=== PATIENT | female | born 1985 | race Caucasian/White ===

== ENCOUNTER → 2023-07-11 17:23 | Outpatient (REF) | payer OTHER, SELFPAY | LOC: RAD 17:23 | PROVIDERS: ATTENDING PHYSICIAN Nurse Practitioner Family; FAMILY PHYSICIAN Family Medicine | DX: O26.859 Spotting complicating pregnancy, unspecified trimester (principal) | CPT/HCPCS: 76801 ==

== ENCOUNTER → 2023-07-26 13:49 | Outpatient (REF) | payer OTHER, SELFPAY | LOC: RAD 13:49 | PROVIDERS: ATTENDING PHYSICIAN Obstetrics & Gynecology; FAMILY PHYSICIAN Family Medicine | DX: O26.859 Spotting complicating pregnancy, unspecified trimester (principal) | CPT/HCPCS: 76801; 76817 ==

== ENCOUNTER → 2023-08-17 16:21 | Outpatient (REF) | payer OTHER, SELFPAY | LOC: PNTC 16:21 | PROVIDERS: ATTENDING PHYSICIAN Obstetrics & Gynecology | DX: Z36.0 Encounter for antenatal screening for chromosomal anomalies (principal) | CPT/HCPCS: 76801; 76813 ==

== ENCOUNTER → 2023-08-22 18:30 | Outpatient (REF) | payer OTHER, SELFPAY | LOC: RAD 18:30 | PROVIDERS: ATTENDING PHYSICIAN Obstetrics & Gynecology; FAMILY PHYSICIAN Family Medicine | DX: O36.8399 Maternal care for abnormalities of the fetal heart rate or rhythm, unspecified trimester, other fetus (principal) | CPT/HCPCS: 76815 ==

== ENCOUNTER → 2023-09-12 16:56 | Outpatient (REF) | payer OTHER, SELFPAY | LOC: PNTC 16:56 | PROVIDERS: ATTENDING PHYSICIAN Obstetrics & Gynecology | DX: O09.529 Supervision of elderly multigravida, unspecified trimester (principal); O99.210 Obesity complicating pregnancy, unspecified trimester | CPT/HCPCS: 76805 ==

== ENCOUNTER → 2023-10-10 15:01 | Outpatient (REF) | payer OTHER, SELFPAY | LOC: PNTC 15:01 | PROVIDERS: ATTENDING PHYSICIAN Obstetrics & Gynecology | DX: O99.210 Obesity complicating pregnancy, unspecified trimester (principal); O09.529 Supervision of elderly multigravida, unspecified trimester | CPT/HCPCS: 76811 ==

== ENCOUNTER → 2023-11-15 16:05 | Outpatient (REF) | payer OTHER, SELFPAY | LOC: PNTC 16:05 | PROVIDERS: ATTENDING PHYSICIAN Obstetrics & Gynecology | DX: O09.529 Supervision of elderly multigravida, unspecified trimester (principal); O99.210 Obesity complicating pregnancy, unspecified trimester | CPT/HCPCS: 76816 ==

== ENCOUNTER 2023-12-09 15:29 | Observation (INO) | payer OTHER, SELFPAY ==
[2023-12-09 15:41] VITALS: BP 150/77; BMI 61.4
[2023-12-09 17:19] LABS: Urine Albumin Negative (Neg - Trace); Urine Bilirubin Negative (Negative); Urine Character Clear (Clear); Urine Color Yellow; Urine Glucose Negative (Negative); Urine Ketone Negative (Negative); Urine Leukocyte 2+ (Negative); Urine Nitrite Negative (Negative); Urine Occult Blood Negative (Negative); Urine Urobilinogen Negative (Neg - 1+)
[2023-12-09 17:21] LABS: Hematocrit 30.3 % (37.0-47.0); Hemoglobin 10.5 g/dL (12.0-16.0); Mean Corp Hgb Conc. 34.7 g/dL (33.0-37.0); Mean Corpuscular Hgb 28.5 pg (27.0-31.0); Mean Corpuscular Volume 82.3 fL (81.0-99.0); Mean Platelet Volume 11.1 fL (7.4-10.4); Platelet Count 195 10^3/uL (130-400); Red Blood Cell Count 3.68 10^6/uL (4.20-5.40); Red Cell Dist. Width 13.4 % (11.5-14.5); White Blood Cell Count 10.6 10^3/uL (4.8-10.8)
[2023-12-09 17:32] LABS: ALT (SGPT) 13 U/L (0-35); AST (SGOT) 20 U/L (14-36); Albumin 3.5 g/dl (3.5-5.0); Alkaline Phosphatase 68 U/L (38-126); Blood Urea Nitrogen 12 mg/dl (7-17); Calcium 9.5 mg/dl (8.4-10.2); Carbon Dioxide 23 mmol/L (22-30); Chloride 106 mmol/L (98-107); Estimated Creatinine Clearance > 125 ml/min; Glucose 96 mg/dl (70-99); Potassium 4.1 mmol/L (3.5-5.1); Sodium 136 mmol/L (135-145); Total Bilirubin 0.4 mg/dl (0.2-1.3); Total Protein 6.2 g/dl (6.3-8.2); eGFR > 60.00
[2023-12-09 17:38] LABS: Urine Bacteria Moderate (Negative); Urine Red Blood Cell 0-2 /HPF (0-2); Urine Squamous Cell >30 /LPF (Few); Urine White Cell 16-20 /HPF (0-5)
== END 2023-12-09 18:04 | disposition home or self-care (01) ==
LOC: LDRP 15:29
PROVIDERS: ADMITTING PHYSICIAN Obstetrics & Gynecology
DX: O47.03 False labor before 37 completed weeks of gestation, third trimester (principal); Z3A.29 29 weeks gestation of pregnancy; O99.213 Obesity complicating pregnancy, third trimester; E66.01 Morbid (severe) obesity due to excess calories; Z98.84 Bariatric surgery status
CPT/HCPCS: 80053; 81003; 81015; 85027; 87086; G0378

== ENCOUNTER → 2023-12-26 07:00 | Outpatient (REF) | payer OTHER, SELFPAY | LOC: PNTC 07:00 | PROVIDERS: ATTENDING PHYSICIAN Obstetrics & Gynecology | DX: O99.210 Obesity complicating pregnancy, unspecified trimester (principal) | CPT/HCPCS: 76816 ==

== ENCOUNTER 2024-01-09 08:10 | Observation (INO) | payer OTHER, SELFPAY ==
[2024-01-09 08:14] VITALS: BP 149/81; BMI 63.0
[2024-01-09 09:23] LABS: Hematocrit 28.6 % (37.0-47.0); Hemoglobin 9.8 g/dL (12.0-16.0); Mean Corp Hgb Conc. 34.3 g/dL (33.0-37.0); Mean Corpuscular Volume 81.7 fL (81.0-99.0); Mean Platelet Volume 11.2 fL (7.4-10.4); Platelet Count 145 10^3/uL (130-400); White Blood Cell Count 9.3 10^3/uL (4.8-10.8)
[2024-01-09 09:29] LABS: ALT (SGPT) 12 U/L (0-35); AST (SGOT) 19 U/L (14-36); Albumin 3.2 g/dl (3.5-5.0); Alkaline Phosphatase 80 U/L (38-126); Blood Urea Nitrogen 8 mg/dl (7-17); Carbon Dioxide 26 mmol/L (22-30); Chloride 105 mmol/L (98-107); Estimated Creatinine Clearance > 125 ml/min; Glucose 96 mg/dl (70-99); Potassium 3.7 mmol/L (3.5-5.1); Sodium 134 mmol/L (135-145); Total Bilirubin 0.3 mg/dl (0.2-1.3); Total Protein 5.7 g/dl (6.3-8.2); eGFR > 60.00
[2024-01-09 09:59] LABS: Urine Albumin Negative (Neg - Trace); Urine Bilirubin Negative (Negative); Urine Character Clear (Clear); Urine Color Yellow; Urine Glucose Negative (Negative); Urine Ketone Negative (Negative); Urine Leukocyte 2+ (Negative); Urine Nitrite Negative (Negative); Urine Occult Blood Negative (Negative); Urine Specific Gravity 1.005 (<1.030); Urine Urobilinogen Negative (Neg - 1+)
[2024-01-09 10:19] LABS: Protein/creatinine Ratio 0.4; Urine Protein 15 mg/dl
[2024-01-09 11:14] LABS: Urine Squamous Cell >30 /LPF (Few)
[2024-01-09 11:16] LABS: Urine Bacteria Few (Negative); Urine Red Blood Cell 0-2 /HPF (0-2); Urine White Cell 60-70 /HPF (0-5)
== END 2024-01-09 11:00 | disposition home or self-care (01) ==
LOC: PNTC-IN 08:10
PROVIDERS: ADMITTING PHYSICIAN Obstetrics & Gynecology
DX: O13.3 Gestational [pregnancy-induced] hypertension without significant proteinuria, third trimester (principal); O09.523 Supervision of elderly multigravida, third trimester; Z3A.34 34 weeks gestation of pregnancy; O99.213 Obesity complicating pregnancy, third trimester; O99.843 Bariatric surgery status complicating pregnancy, third trimester; E66.01 Morbid (severe) obesity due to excess calories
CPT/HCPCS: 59025; 76815; 80053; 81003; 81015; 82570; 84156; 85027; G0378

== ENCOUNTER 2024-01-14 06:57 | Observation (INO) | payer OTHER, SELFPAY ==
[2024-01-14 00:32] LABS: % Basophils 0.3 % (0-2); % Eosinophils 0.8 % (0-6); % Immature Granulocytes 2.6 % (0-0.5); % Lymphocytes 20.9 % (20.5-51.1); % Monocytes 7.5 % (1.7-9.3); % Neutrophils 67.9 % (42.2-75.2); Absolute Eosinophils 0.1 10^3/uL (0-0.7); Absolute Immature Granulocytes 0.3 10^3/uL (0-0.05); Absolute Lymphocytes 2.5 10^3/uL (1.2-3.4); Absolute Monocytes 0.9 10^3/uL (0.1-0.6); Absolute Neutrophils 8.2 10^3/uL (1.4-6.5); Hematocrit 29.1 % (37.0-47.0); Mean Corp Hgb Conc. 34.4 g/dL (33.0-37.0); Mean Corpuscular Hgb 27.6 pg (27.0-31.0); Mean Corpuscular Volume 80.4 fL (81.0-99.0); Mean Platelet Volume 11.5 fL (7.4-10.4); Nucleated Red Blood Cells % 0 %; Platelet Count 176 10^3/uL (130-400); Red Blood Cell Count 3.62 10^6/uL (4.20-5.40); White Blood Cell Count 12.1 10^3/uL (4.8-10.8)
[2024-01-14 00:40] VITALS: BP 161/86; BMI 63.9
[2024-01-14 00:43] LABS: ALT (SGPT) 13 U/L (0-35); AST (SGOT) 20 U/L (14-36); Albumin 3.5 g/dl (3.5-5.0); Alkaline Phosphatase 91 U/L (38-126); Blood Urea Nitrogen 13 mg/dl (7-17); Calcium 9.5 mg/dl (8.4-10.2); Carbon Dioxide 21 mmol/L (22-30); Chloride 105 mmol/L (98-107); Glucose 140 mg/dl (70-99); Potassium 3.4 mmol/L (3.5-5.1); Sodium 135 mmol/L (135-145); Total Bilirubin 0.3 mg/dl (0.2-1.3); eGFR > 60.00
[2024-01-14] MEDS: CELESTONE SOLUSPAN 2 MG IM (00:45)
[2024-01-14] MEDS: FEOSOL 325 MG PO (08:00)
[2024-01-14] MEDS: LOW STRENGTH ASPIRIN 81 MG PO (08:00)
[2024-01-14] MEDS: PRENATAL PLUS 1 TABLET PO (08:00)
[2024-01-15] MEDS: CELESTONE SOLUSPAN 2 MG IM (00:49)
== END 2024-01-15 02:12 | disposition home or self-care (01) ==
LOC: LDRP 06:57
PROVIDERS: ADMITTING PHYSICIAN Obstetrics & Gynecology
DX: O36.8130 Decreased fetal movements, third trimester, not applicable or unspecified (principal); Z3A.34 34 weeks gestation of pregnancy; O99.213 Obesity complicating pregnancy, third trimester; E66.01 Morbid (severe) obesity due to excess calories; O14.13 Severe pre-eclampsia, third trimester; O99.843 Bariatric surgery status complicating pregnancy, third trimester
CPT/HCPCS: 59025; 80053; 85025; 86850; 86900; 86901; 87070; G0378

== ENCOUNTER → 2024-01-17 07:33 | Outpatient (REF) | payer OTHER, SELFPAY | LOC: PNTC 07:33 | PROVIDERS: ATTENDING PHYSICIAN Obstetrics & Gynecology | DX: O99.210 Obesity complicating pregnancy, unspecified trimester (principal) | CPT/HCPCS: 59025; 76815 ==

== ENCOUNTER → 2024-01-23 08:59 | Outpatient (REF) | payer OTHER, SELFPAY | LOC: PNTC 08:59 | PROVIDERS: ATTENDING PHYSICIAN Obstetrics & Gynecology | DX: O99.210 Obesity complicating pregnancy, unspecified trimester (principal) | CPT/HCPCS: 59025; 76816 ==

== ENCOUNTER 2024-02-01 05:28 | Inpatient (IN) | payer OTHER, SELFPAY ==
[2024-02-01 05:37] VITALS: BP 146/88; BMI 64.6
[2024-02-01 06:13] LABS: Hematocrit 31.9 % (37.0-47.0); Hemoglobin 11.1 g/dL (12.0-16.0); Mean Corp Hgb Conc. 34.8 g/dL (33.0-37.0); Mean Corpuscular Hgb 28.4 pg (27.0-31.0); Mean Corpuscular Volume 81.6 fL (81.0-99.0); Mean Platelet Volume 11.3 fL (7.4-10.4); Platelet Count 148 10^3/uL (130-400); Red Blood Cell Count 3.91 10^6/uL (4.20-5.40); Red Cell Dist. Width 15.6 % (11.5-14.5); White Blood Cell Count 10.2 10^3/uL (4.8-10.8)
[2024-02-01] MEDS: BICITRA 30 ML PO (07:05)
[2024-02-01] MEDS: TYLENOL 1000 MG PO (07:05)
[2024-02-01] MEDS: ANCEF 15 MG IV (08:25)
[2024-02-01 08:37] LABS: ALT (SGPT) 15 U/L (0-35); AST (SGOT) 24 U/L (14-36); Albumin 3.5 g/dl (3.5-5.0); Alkaline Phosphatase 104 U/L (38-126); Blood Urea Nitrogen 8 mg/dl (7-17); Calcium 9.1 mg/dl (8.4-10.2); Chloride 104 mmol/L (98-107); Estimated Creatinine Clearance > 125 ml/min; Glucose 104 mg/dl (70-99); Potassium 3.8 mmol/L (3.5-5.1); Sodium 139 mmol/L (135-145); Total Bilirubin 0.6 mg/dl (0.2-1.3); Total Protein 6.1 g/dl (6.3-8.2); eGFR > 60.00
[2024-02-01 08:49] LABS: Carbon Dioxide 22 mmol/L (22-30)
[2024-02-01] MEDS: PITOCIN 30 UNITS/NSS 500 ML IV (09:45)
[2024-02-01] MEDS: BENADRYL 25 MG IV (10:25)
[2024-02-01] MEDS: TORADOL 15 MG IV ×2 (16:17→22:02)
[2024-02-02] MEDS: TORADOL 15 MG IV ×2 (03:54→10:10)
[2024-02-02 04:27] LABS: Hematocrit 26.4 % (37.0-47.0); Hemoglobin 9.3 g/dL (12.0-16.0); Mean Corp Hgb Conc. 35.2 g/dL (33.0-37.0); Mean Corpuscular Hgb 28.9 pg (27.0-31.0); Mean Platelet Volume 11.2 fL (7.4-10.4); Platelet Count 130 10^3/uL (130-400); Red Blood Cell Count 3.22 10^6/uL (4.20-5.40); Red Cell Dist. Width 15.3 % (11.5-14.5); White Blood Cell Count 10.3 10^3/uL (4.8-10.8)
[2024-02-02] MEDS: PRENATAL PLUS 1 TABLET PO (07:50)
[2024-02-02] MEDS: MOTRIN 600 MG PO ×2 (15:57→22:10)
[2024-02-02] MEDS: SENOKOT-S 1 TABLET PO (22:10)
[2024-02-02] MEDS: TRANDATE 200 MG PO (22:10)
[2024-02-02] MEDS: TYLENOL 650 MG PO (22:10)
[2024-02-03] MEDS: FEOSOL 325 MG PO (07:59)
[2024-02-03] MEDS: TRANDATE 200 MG PO (07:59)
[2024-02-03] MEDS: PRENATAL PLUS 1 TABLET PO (08:00)
[2024-02-03] MEDS: TYLENOL 650 MG PO ×2 (08:02→19:50)
[2024-02-03] MEDS: MOTRIN 600 MG PO (08:02)
[2024-02-03 12:42] LABS: Syphilis/T. pallidum Ab Reflex Negative (Negative)
[2024-02-03] MEDS: TRANDATE 300 MG PO (19:50)
[2024-02-04] MEDS: PRENATAL PLUS 1 TABLET PO (07:50)
[2024-02-04] MEDS: FEOSOL 325 MG PO (07:50)
[2024-02-04] MEDS: TRANDATE 300 MG PO (07:51)
--- NOTE | 2024-02-04 08:33 | W.DS.TRANS ---
DC Summary - [employer]
-
Discharge Instructions:
Discharge Diagnosis/Procedures rcs
Instructions:
Stand-Alone Forms: LDRP Delivery
LDRP Hypertensive Disorders
Changes to Home Medications: No
Discharge Medications:
DC Medications w/original date entered in [facility]
vitamin-ferrous fumarate 28 mg iron-folic acid 800 mcg tablet 1 ea PO DAILY Supplement 11/22/18
iron 40 mg capsule 1 mg PO DAILY 02/01/24
ibuprofen 600 mg tablet 600 mg PO Q6HPRN PRN cramps #90 tabs 02/04/24
labetalol 200 mg tablet 300 mg (1.5 x 200 mg) PO BID #90 tabs 02/04/24
Home Medication Changes
Pending Results: No
Total time spent discharging patient (in min): 20
== END 2024-02-04 09:13 | disposition home or self-care (01) | DRG 788 ==
LOC: LDRP 05:28
PROVIDERS: Obstetrics & Gynecology; ADMITTING PHYSICIAN Obstetrics & Gynecology; FAMILY PHYSICIAN Family Medicine
PROC: 6A550ZT Pheresis of Cord Blood Stem Cells, Single (ICD-10-PCS; 2024-02-02)
PROC: 10D00Z1 Extraction of Products of Conception, Low, Open Approach (ICD-10-PCS; 2024-02-02)
DX: O34.211 Maternal care for low transverse scar from previous cesarean delivery (principal); Z3A.37 37 weeks gestation of pregnancy; Z37.0 Single live birth; O69.81X0 Labor and delivery complicated by cord around neck, without compression, not applicable or unspecified; O14.04 Mild to moderate pre-eclampsia, complicating childbirth; O99.214 Obesity complicating childbirth; E66.01 Morbid (severe) obesity due to excess calories; O36.63X0 Maternal care for excessive fetal growth, third trimester, not applicable or unspecified; F41.9 Anxiety disorder, unspecified; O99.344 Other mental disorders complicating childbirth; Z82.49 Family history of ischemic heart disease and other diseases of the circulatory system; Z83.3 Family history of diabetes mellitus; O99.844 Bariatric surgery status complicating childbirth
CPT/HCPCS: 88307; 36415; 80053; 85027; 86780; 86850; 86900; 86901

== ENCOUNTER → 2025-03-27 09:00 | Outpatient (REF) | payer OTHER, SELFPAY | LOC: WDC 09:00 | PROVIDERS: ATTENDING PHYSICIAN Family Medicine | DX: N63.20 Unspecified lump in the left breast, unspecified quadrant (principal) | CPT/HCPCS: 76642; 77062; 77066 ==